=== PATIENT | male | born 2005 | race Caucasian/White ===

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

== ENCOUNTER 2024-09-23 10:30 | Emergency (ER) | payer MEDICAID, SELFPAY ==
[2024-09-23 10:32] VITALS: BP 126/96; PULSE 68; RESP 16; TEMP 36.4; O2SAT 99; BMI 16.0
--- NOTE | 2024-09-23 11:39 | EX.ED.VIS.PS ---
HPI <JHONATAN Lauren - Last Filed: 09/23/24 17:40> HPI - Psych History of Present Illness Chief Complaint: Mental Health Narrative Narrative: Patient presenting today due to concerns for auditory and visual hallucinations he has had over the last several days. He reports that he sees people who are not there and also hears voices, primarily whispers that talk about Shree and also tell him to bite himself. Mom reports that he has been biting his arms and shoulders. She reports that he has a history of Asperger's, bipolar disorder, and schizophrenia. He is not currently on any antipsychotics. He used to follow with the counseling center but no longer does, mom called to get him scheduled and they recommended he be brought here so that he can be admitted to psychiatric hospital. He denies SI, HI, and substance use. PFSH <JHONATAN Lauren - Last Filed: 09/23/24 17:40> [facility] Medical History Schizophrenia Bipolar 1 disorder Asperger syndrome Autism Home Medications ?Medication ?Instructions ?Recorded ?Last Taken ?Type lorazepam .ROUTE 09/23/24 Unknown History Allergy/AdvReac Type Severity Reaction Status Date / Time egg Allergy Hives Verified 09/23/24 10:32 chocolate flavor AdvReac Diarrhea Verified 09/23/24 10:32 Surgical History History of placement of ear tubes Social History Smoking Status: Never smoker ROS <JHONATAN Lauren - Last Filed: 09/23/24 17:40> ROS ED Constitutional Constitutional ED: Denies chills or fever(s) Cardiovascular Cardiovascular: Denies chest pain Respiratory/Chest Respiratory/Chest: Denies cough or dyspnea Gastrointestinal Gastrointestinal: Denies abdominal pain, nausea or vomiting Musculoskeletal Musculoskeletal: Denies arthralgias or myalgias Integumentary Denies rash Neurologic Neurologic: Denies weakness Psychiatric Psychiatric: Reports hallucinations; Denies homicidal ideation, suicidal ideation or suicidal thoughts EXAM <JHONATAN Lauren - Last Filed: 09/23/24 17:40> Physical Exam Const Vital Signs: 09/23/24 10:32 09/23/24 12:24 09/23/24 16:11 Temperature 97.6 F L 97.5 F L Temperature Source Oral Pulse Rate 68 82 91 Respiratory Rate 16 16 16 Blood Pressure 126/96 H 127/81 H 124/82 H Blood Pressure Mean 106 96 96 Pulse Ox 99 98 96 Oxygen Delivery Method Room Air Room Air Positive well nourished, well developed and no apparent distress General Appearance ED: well developed HEENT Reports normocephalic and head/scalp atraumatic Mouth ED: Yes moist mucous membranes normal Eyes PERRL and EOMs intact bilaterally Neck full ROM and supple Chest Wall inspection of chest normal Resp normal respiratory effort and clear to auscultation bilaterally Cardio regular rate and regular rhythm GI soft to palpation, non-tender, non-distended and no masses Back/Spine normal ROM and normal to inspection Extremity normal to inspection and full ROM Neuro oriented x3, CN's II-XII intact bilaterally, moves all extremities, no focal motor deficits and no sensory deficits noted Sensorium / Orientation: awake and alert Psych cooperative Attitude: calm Thought Content: hallucination(s) Positive for auditory and visual Skin no rashes or lesions noted and no wounds <Dr. Porfirio Salgado DO - Last Filed: 09/23/24 15:04> Physical Exam Const Vital Signs: 09/23/24 10:32 09/23/24 12:24 09/23/24 16:11 Temperature 97.6 F L 97.5 F L Temperature Source Oral Pulse Rate 68 82 91 Respiratory Rate 16 16 16 Blood Pressure 126/96 H 127/81 H 124/82 H Blood Pressure Mean 106 96 96 Pulse Ox 99 98 96 Oxygen Delivery Method Room Air Room Air MDM <JHONATAN Lauren - Last Filed: 09/23/24 17:40> [facility] Narrative Medical decision making narrative: Patient presenting today with his mom due to concerns for auditory and visual hallucinations. He is not currently on any psychotic medications. He is not suicidal or homicidal. He has had voices telling him to bite himself, no bite wounds noted on exam. Mom would like patient to go to a psychiatric facility so that a treatment plan can be developed. He otherwise is nontoxic-appearing. Medical clearance labs obtained and patient is medically cleared. Social work did speak with patient and his mom and they agree that he would benefit from placement in a facility. He is pending transfer at this time and remains stable. He was pink slipped. Lab Data Labs: Laboratory Results - last 24 hr 09/23/24 09/23/24 11:39 13:13 WBC 7.5 RBC 5.91 Hgb 16.2 Hct 48.7 MCV 82.4 MCH 27.4 MCHC 33.3 RDW Std Deviation 40.3 RDW Coeff of Armin 13.6 Plt Count 176 MPV 10.3 Immature Gran % (Auto) 0.400 Neut % (Auto) 74.7 H Lymph % (Auto) 12.1 L [place] % (Auto) 11.2 H Eos % (Auto) 1.1 Baso % (Auto) 0.5 Absolute Neuts (auto) 5.6 Absolute Lymphs (auto) 0.91 Nucleated RBC % 0 Sodium 135 L Potassium 3.9 Chloride 103 Carbon Dioxide 28.0 Anion Gap 5 BUN 9 Creatinine 0.78 Estim Creat Clear Calc 121.44 Est GFR (MDRD) Af Amer 162 Est GFR (MDRD) Non-Af 134 BUN/Creatinine Ratio 11.5 Glucose 92 Calcium 9.4 Urine Opiates Screen NEGATIVE Urine Methadone Screen NEGATIVE Ur Barbiturates Screen NEGATIVE Ur Phencyclidine Scrn NEGATIVE Ur Amphetamines Screen NEGATIVE MDMA (Ecstasy) Screen NEGATIVE U Benzodiazepines Scrn NEGATIVE Urine Cocaine Screen NEGATIVE U Cannabinoids Screen NEGATIVE Ur Drug Screen Comment Ethyl Alcohol < 3.0 <Dr. Porfirio Salgado, DO - Last Filed: 09/23/24 15:04> MDM History & Record Review Discussion w/independent historian: Patient and Family Lab Data Attestation: I reviewed the patient's lab results. Labs: Laboratory Results - last 24 hr 09/23/24 09/23/24 11:39 13:13 WBC 7.5 RBC 5.91 Hgb 16.2 Hct 48.7 MCV 82.4 MCH 27.4 MCHC 33.3 RDW Std Deviation 40.3 RDW Coeff of Armin 13.6 Plt Count 176 MPV 10.3 Immature Gran % (Auto) 0.400 Neut % (Auto) 74.7 H Lymph % (Auto) 12.1 L [place] % (Auto) 11.2 H Eos % (Auto) 1.1 Baso % (Auto) 0.5 Absolute Neuts (auto) 5.6 Absolute Lymphs (auto) 0.91 Nucleated RBC % 0 Sodium 135 L Potassium 3.9 Chloride 103 Carbon Dioxide 28.0 Anion Gap 5 BUN 9 Creatinine 0.78 Estim Creat Clear Calc 121.44 Est GFR (MDRD) Af Amer 162 Est GFR (MDRD) Non-Af 134 BUN/Creatinine Ratio 11.5 Glucose 92 Calcium 9.4 Urine Opiates Screen NEGATIVE Urine Methadone Screen NEGATIVE Ur Barbiturates Screen NEGATIVE Ur Phencyclidine Scrn NEGATIVE Ur Amphetamines Screen NEGATIVE MDMA (Ecstasy) Screen NEGATIVE U Benzodiazepines Scrn NEGATIVE Urine Cocaine Screen NEGATIVE U Cannabinoids Screen NEGATIVE Ur Drug Screen Comment Ethyl Alcohol < 3.0 Management Discussion w/another healthcare provider: face worker/Case management Treatment and Re-Evaluation Narrative: I have personally performed a face to face assessment of the patient and have reviewed the PERCY Note. I performed a substantive portion of the visit including all aspects of the following. My ratliff findings include: History is 19-year-old male history of schizophrenia bipolar asked Buerger's presenting with auditory and visual command hallucinations. He has begun biting himself. He is not currently on psychiatric medications. He is accompanied by mom. Exam is patient is cooperative with staff. Hallucinations are noted. Appears internally stimulated. Medical Decison Making patient was medically cleared. Case was discussed with social work, are going to work towards a psychiatric admission. Discharge Plan Triage Chief Complaint: Mental Health ED Midlevel Provider: Ela Huertas ED Provider: Porfirio Salgado Dx/Rx/DC Orders Clinical Impression: Auditory hallucinations, Hallucination, visual, Bipolar disorder, Schizophrenia, Asperger disorder Prescriptions: No Action lorazepam .ROUTE Patient Comments: PER MOTHER, PT TAKES 10 MG ATIVAN PRN FOR ANXIETY/ AGGITATION Primary Care Provider: Care Physician,No Primary Referrals: Care Physician,No Primary [Primary Care Provider] - Print Language: Hungarian
[2024-09-23 11:55] LABS: Absolute Lymphocyte Count 0.91 X10^3/uL (0.83-4.51); Absolute Neutrophil Count 5.6 X10^3/uL (2.0-7.7); Basophil# 0.04 X10^3/uL; Basophil% 0.5 % (0-1); Eosinophil# 0.08 X10^3/uL; Eosinophils% 1.1 % (0-5); Hematocrit 48.7 % (40-54); Hemoglobin 16.2 g/dL (13.0-16.5); Lymphocyte # 0.91 X10^3/ul (0.83-4.51); Lymphocyte % 12.1 % (19-41); Mean Corp Hgb Conc 33.3 g/dL (32-36); Mean Corpuscular Hgb 27.4 pg (27.0-32.0); Mean Corpuscular Volume 82.4 fL (80-94); Mean Platelet Vol. 10.3 fl (6.2-12.0); Monocyte# 0.84 X10^3/uL; Monocyte% 11.2 % (0-10); NRBC Flagged by Analyzer 0 % (0-5); Neutrophil # 5.63 X10^3/uL (2.7-7.7); Neutrophil % 74.7 % (47-70); Platelet Count 176 K/mm3 (150-450); RBC Distribution Width CV 13.6 % (11.6-14.6); RBC Distribution Width SD 40.3 fl (35.1-43.9); Red Blood Count 5.91 M/mm3 (4.6-6.2); White Blood Count 7.5 K/mm3 (4.4-11.0)
[2024-09-23 12:08] LABS: Anion Gap 5 (5-15); BUN 9 mg/dL (7-18); BUN/Creat Ratio 11.5 RATIO (10-20); Calcium,Total 9.4 mg/dL (8.5-10.1); Chloride 103 mmol/L (98-107); Creatinine, Serum 0.78 mg/dL (0.70-1.30); EST Glomerular Filtration Rate 134 mL/min (>60); Est Glom Filt Rate - Afr Amer 162 mL/min (>60); Estimated Creatinine Clearance 121.44 ml/min; Glucose 92 mg/dL (74-106); Potassium 3.9 mmol/L (3.5-5.1); Sodium Level 135 mmol/L (136-145)
[2024-09-23 12:10] LABS: Alcohol, Blood (Medical)-Serum < 3.0 mg/dL
[2024-09-23 12:24] VITALS: BP 127/81; PULSE 82; RESP 16; O2SAT 98
[2024-09-23 13:44] LABS: Amphetamine Urine VISTA NEGATIVE (<1000 ng/mL); Barbiturate Urine VISTA NEGATIVE (< 200 ng/mL); Benzodiazepine Urine VISTA NEGATIVE (< 200 ng/mL); Cocaine Urine VISTA NEGATIVE (< 300 ng/mL); Ecstacy Urine VISTA NEGATIVE (< 500 ng/mL); Methadone Urine VISTA NEGATIVE (< 300 ng/mL); PCP Urine VISTA NEGATIVE (< 25 ng/mL); THC Urine VISTA NEGATIVE (< 50 ng/mL); Vista UDS pH Range 7
--- NOTE | 2024-09-23 14:49 | CM.ED ---
Social Work Psychiatric Assessment Reason for consult: mental health/hallucinations. Informant(s): patient, patient?s mother Martha, and medical records. Chief Complaint: Patient presented to the [facility] ED via squad along with patient?s mother, Martha. Per triage, patient has ?experienced an increase in visual and auditory hallucinations over the past few months.? Triage notes also show patient?s mother stating ?patient has been biting himself? more often over the last two months. Patient reports his hallucinations as coming from ?nobody specific,? but patient identifies the hallucinations as ?swearing, mumbling, and whispering.? Patient reports the voices are telling patient to bite himself, which patient?s mother reports patient doing more often lately. Patient reports eating and sleeping as ?okay,? but patient?s mother reports a decline in patient?s sleep and patient?s mother reports an inability to keep patient out of the fridge. Patient?s mother reports patient has ?not been acting like himself,? specifically stating patient has been looking in the hallways during the evening for patient?s mother and patient?s sister. Patient was unaware of yesterday being [place] and patient had disorganized thinking throughout conversation. Patient bit himself a few times during this assessment and patient became agitated at times throughout conversation. Marital/Social History/Sexual Orientation/Gender Identity: patient is single and identifies as a straight male. Living Situation: patient initially reported living with his father and sister, Angle. Patient later reported living with his mother and sister Angle. Patient?s mother reports that patient?s stepfather, Thad (goes by Aiden), lives with patient as well. Support/Resources: patient reports having a dog, Freddy, at home. Patient?s mother reports having zero supports and resources. Patient?s mother reports that patient has support from patient?s mother and patient?s father only. Patient?s mother reported patient used to have [employer] services until patient graduated high school. History: None Education and Employment History: patient reportedly graduated high school and went to the [employer] for Building and Grounds. Patient does not currently work. In school, patient reportedly had an IEP for speech, handwriting, and extra time on tests. Mental Health Treatment/History: patient was first diagnosed with ADHD and high-functioning autism by patient?s PCP and those were confirmed by [facility]. Patient was also reportedly diagnosed with Schizophrenia and Bipolar I disorder during his placement at [facility] in October 2022. Patient?s mother reports [facility] to be patient?s only inpatient placement. Patient reportedly receiving counseling and psychiatric services through [facility] after patient?s [facility] stay, but patient is not currently receiving these services anywhere. Patient has reportedly taken Adderall and Ativan in the past, but patient?s mother denies current use of these medications. Patient?s father reportedly has been diagnosed with schizophrenia and bipolar; patient?s mother reports being through ?17 mental health assessments? with patient?s father. Patient?s last mental health assessment through [facility] ED was on 11/06/2022. Triggers/Stressors to mental health: patient denies any current triggers/stressors to his mental health. Patient?s mother also denied any current stressors. Coping Skills: patient stated ?yes? when asked about coping skills. Patient then stated, ?I don?t know? when asked what specific coping skills. Patient was given options by this foster care social worker and patient stated he still did not know. Patient became overwhelmed at one point during the assessment and patient was able to take a deep breath with this foster care social worker which helped. Patient?s mother stated patient has been ?obsessed? with taking showers lately and showers appear to help regulate patient?s emotions. Patient?s mother stated patient enjoys checking on patient?s mother and patient?s sister, as well as ?cuddling? with patient?s mother. History of Abuse (physical/sexual/verbal/emotional): patient and patient?s mother both deny. Substance Abuse Current/Historical: patient and patient?s mother both deny. Risk to Self/Others: ? Suicidal (thought/plan/intent/attempt): Patient and patient?s mother deny patient having current or historical suicidal thoughts, plans, intent, or attempts. ? Access to Lethal Means: patient?s mother reports patient has no access to guns or patient?s medication. Patient is reportedly not allowed in the kitchen where knives are without patient?s mother, patient?s stepfather, or patient?s sister present. ? Homicidal (thought/plan/intent/attempt): Patient and patient?s mother deny patient having current or historical homicidal thoughts, plans, intent, or attempts. ? History of Violence (self/others/objects): Patient denies history of violence toward self, others, and objects. Patient?s mother states patient has been biting himself more often over the last two months. Mental Status Exam: ??? Orientation: patient was not oriented to time, place, or person. Patient stated it was the ?? and patient believed patient was at ?home? rather than the hospital. Patient stated the president was ?Roberto.? Memory: impaired. Appearance/General Behavior: disheveled, arrived to [facility] ED in socks and no shoes, directable. Mood/Affect: elevated, blunted at times. Communication Pattern: does not initiate, pressured, agitated at times, inability to answer specifically. Thought Process: hallucinations A/V, preoccupied by internal stimuli. General Intellectual Functioning: below average. Judgment: poor Insight: poor [place] SS[place] SUICIDAL IDEATION Ask questions 1 and 2.? If both are negative, proceed to ?Suicidal Behavior? section. If the answer question 2 is yes, ask questions 3, 4, 5.? If the answer to question 1 and/or 2 is ?yes?, complete ?Intensity of Ideation? section below. 1. Wish to be ? Subject endorses thoughts about a wish to be or not alive anymore, or wish to fall asleep and not wake up. Have you wished you were or wished you could go to sleep and not wake up? Lifetime: Time He/She [place] Most Suicidal: ?no Past 1 month: no Please Describe if yes: ?N/A 2. Non-Specific Active Suicidal Thoughts General, non-specific thoughts of wanting to end one?s life/commit suicide (e.g., ?I?ve thought about killing myself?) without thoughts of ways to kills oneself/associated methods, intent, or plan during the assessment period.? Have you actually had any thoughts of killing yourself? Lifetime: Time He/She [place] Most Suicidal: ?no Past 1 month: no Please Describe if yes: N/A 3. Active Suicidal Ideation with Any Methods (Not Plan) without Intent to Act Subject endorses thoughts of suicide and has thought of at least one method during the assessment period.? This is different than a specific plan with time, place, or method details worked out (e.g., thought of method to kills self but not a specific plan).? Includes person who would say ?I thought about thanking an overdose, but I never made a specific plan as to when, where or how. I would actually do it, and I would never go through with it.? Have you been thinking about how you might do this? Lifetime: Time He/She [place] Most Suicidal: ? Past 1 month:? Please Describe if yes: 4. Active Suicidal Ideation with Some Intent to Act, without Specific Plan Active suicidal thoughts of kills oneself fand subject reports having some intent to act on such thoughts, as opposed to ?I have the thoughts but I definitely will not do anything about them.? Have you had these thoughts and had some intention of acting on them? Lifetime: Time He/She [place] Most Suicidal: Past 1 month: Please Describe if yes: 5. Active Suicidal Ideation with Specific Plan and Intent Thoughts of kills oneself with details of plan fully or partially worked out and subject has some intent to care it out. Have you started to work out or worked out the details of how to kill yourself? Do you intend to carry out this plan? Lifetime: Time He/She [place] Most Suicidal: Past 1 month: ??? Please Describe if yes: INTENSITY OF IDEATION The following feature should be rated with respect to the most sever type of ideation (i.e., 1-5 from above, with 1 being the least severe and 5 being the most severe). Ask about time he/she/they were feeling the most suicidal.? Lifetime - Most Severe Ideation: Type # (1-5): Description: Recent - Most Severe Ideation: Type # (1-5): Description: Frequency How many times have you had these thoughts? Lifetime: (1) Less than once a week??? (2) Once a week?? (3)? 2-5 times in week??? (4) Daily or almost daily??? (5) Many times each day Recent, Past 1 month:? (1) Less than once a week??? (2) Once a week?? (3)? 2-5 times in week??? (4) Daily or almost daily??? (5) Many times each day Duration When you have the thoughts how long do they last? Lifetime: (1) Fleeting - few seconds or minutes? (2) Less than 1 hour/some of the time? (3) 1-4 hours/a lot of time? 4) 4-8 hours/most of day? (5) More than 8 hours/persistent or continuous Recent, Past 1 month :? (1) Fleeting - few seconds or minutes? (2) Less than 1 hour/some of the time? (3) 1-4 hours/a lot of time? 4) 4-8 hours/most of day? (5) More than 8 hours/persistent or continuous Controllability Could/can you stop thinking about killing yourself or wanting to if you want to? Lifetime: ?(1) Easily able to control thoughts?? (2) Can control thoughts with little difficulty??? (3) Can control thoughts with some difficulty??? 4) Can control thoughts with a lot of difficulty? (5) Unable to control thoughts?? (0) Does not attempt to control thoughts Recent, Past 1 month: (1) Easily able to control thoughts?? (2) Can control thoughts with little difficulty??? (3) Can control thoughts with some difficulty??? 4) Can control thoughts with a lot of difficulty? (5) Unable to control thoughts?? (0) Does not attempt to control thoughts Deterrents Are there things - anyone or anything (e.g., family, latter-day, pain of ) - that stopped you from wanting to or acting on thoughts of committing suicide? Lifetime:? (1) Deterrents definitely stopped you from attempting suicide? (2) Deterrents probably stopped you?? (3) Uncertain that deterrents stopped you? (4) Deterrents most likely did not stop you? (5) Deterrents definitely did not stop you?? 0) Does not apply??? Recent:??? (1) Deterrents definitely stopped you from attempting suicide? (2) Deterrents probably stopped you?? (3) Uncertain that deterrents stopped you? (4) Deterrents most likely did not stop you? (5) Deterrents definitely did not stop you?? 0) Does not apply??? Reasons for Ideation What sort of reasons did you have for thinking about wanting to or killing yourself? Was it to end the pain or stop the way you were feeling (in other words you couldn?t go on living with this pain or how you were feeling) or was it to get attention, revenge or a reaction from others? Or both? Lifetime: (1) Completely to get attention, revenge or a reaction from? ?(2) Mostly to get attention, revenge or a reaction from others? (3) Equally to get attention, revenge or a reaction from others ?and to end/stop the pain?? ( 4) Mostly to end or stop the pain (you couldn?t go on living with the pain or how you were feeling)??? (5) Completely to end or stop the pain (you couldn?t go on living with the pain or? how you were feeling)??? (0)? Does not apply? Recent: (1) Completely to get attention, revenge or a reaction from?? (2) Mostly to get attention, revenge or a reaction from others? (3) Equally to get attention, revenge or a reaction from others? and to end/stop the pain??? (4) Mostly to end or stop the pain (you couldn?t go on living with the pain or how you were feeling)?? (5) Completely to end or stop the pain (you couldn?t go on living with the pain or? how you were feeling)?? (0)? Does not apply? SUICIDAL BEHAVIOR Actual Attempt: A potentially self-injurious act committed with at least some wish to , as a result of act.? Behavior was in part thought of as method to kill oneself.? Intent does not have to be 100%.? If there is any intent/desire to associated with the act, then it can be considered an actual suicide attempt.? There does not have to be any injury of harm, just the potential for injury or harm.? If person pulls trigger while gun is in mouth, but gun is broken so no injury results, this is considered an attempt.? Inferring intent:? Even if an individual denies intent/wish to , it may be inferred clinically from the behavior or circumstances.? For example, a highly lethal act that is clearly not an accident so no other intent but suicide can be inferred (e.g. gunshot to head, jumping from window of a high floor/story).? Also, if someone denies intent to , but they thought that what they did could be lethal, intent may be inferred.? Have you made a suicide attempt? Have you done anything to harm yourself? Have you done anything dangerous where you could have ? What did you do? Did you as a way to end your life? Did you want to (even a little) when you ? Were you trying to end your life when you ? Or did you think it was possible you could have from ? Or did you do it purely for other reasons/without ANY intention of killing yourself like to relieve stress, feel better, get sympathy, or get something else to happen)? (Self -Injurious Behavior without suicidal intent) Lifetime: no Past 3 months: no If yes, describe: N/A Total # of Attempts in His/Her Lifetime: 0 Total # of attempts in Past 3 months: 0 Has person engaged in Non-Suicidal Self-Injurious Behavior? Lifetime: no Past 3 months: no Interrupted Attempt:? When the person is interrupted (by an outside circumstance) from starting the potentially self-injurious act (if not for that, actual attempt would have occurred).? Overdose: Person has pills in hand but is stopped from ingesting. Once they ingest any pills, this becomes an attempt rather than an interrupted attempt. Shooting: Person has gun pointed toward self, gun is taken away by someone else, or is somehow prevented from pulling trigger. Once they pull the trigger, even if the gun fails to fire, it is an attempt. Jumping: Person is poised to jump, is grabbed and taken down from ledge.? Hanging: Person has noose around neck but has not yet started to hang self -is stopped from doing so.? Has there been a time when you started to do something to end your life but someone or something stopped you before you did anything? Lifetime: Past 3 months: If yes, describe: ? Total # of interrupted attempts in His/Her Lifetime: Total # of interrupted attempts in Past 3 months: Aborted or Self-Interrupted Attempt:? When person begins to take steps toward making a suicide attempt, but stops themselves before they have actually engaged in any self-destructive behavior. Examples are like interrupted attempts, except that the individual stops him/herself, instead of being stopped by something else. Has there been a time when you started to do something to try to end your life, but you stopped yourself before you did anything? Lifetime: Past 3 months: If yes, describe: Total # of aborted or self-interrupted attempts in His/Her Lifetime: Total # of aborted or self-interrupted attempts in Past 3 months: Preparatory Acts or Behavior:? Acts or preparation towards imminently making a suicide attempt. This can include anything beyond a verbalization or thought, such as assembling a specific method (e.g., buying pills, purchasing a gun) or preparing for one?s by suicide (e.g., giving things away, writing a suicide note). Have you taken any steps towards making a suicide attempt or preparing to kill yourself (such as collecting pills, getting a gun, giving valuables away or writing a suicide note)? Lifetime: Past 3 months: If yes, describe: ? Total # of preparatory acts in His/Her Lifetime: Total # of preparatory acts in Past 3 months: Lethality/Medical Damage:??? 0.? No physical damage or very minor physical damage (e.g., surface scratches). 1.? Minor physical damage (e.g., lethargic speech; first-degree gaona; mild bleeding; sprains). 2.? Moderate physical damage; medical attention needed (e.g., conscious but sleepy, somewhat responsive; second-degree gaona; bleeding of major vessel). 3.? Moderately severe physical damage; medical hospitalization and likely intensive care required (e.g., comatose with reflexes intact; third-degree gaona less than 20% of body; extensive blood loss but can recover; major fractures). 4.? Severe physical damage; medical hospitalization with intensive care required (e.g., comatose without reflexes; third-degree gaona over 20% of body; extensive blood loss with unstable vital signs; major damage to a vital area). 5.? Most Recent attempt Date: Code: Most Lethal Attempt Date: Code: Initial/First Attempt Date: Code: Potential Lethality: ?Only Answer if Actual Lethality=0 Likely lethality of actual attempt if no medical damage (the following examples, while having no actual medical damage, had potential for very serious lethality: put gun in mouth and pulled the trigger but gun fails to fire so no medical damage; laying on train tracks with oncoming train but pulled away before run over). 0 = Behavior not likely to result in injury 1 = Behavior likely to result in injury but not likely to cause 2 = Behavior likely to result in despite available medical care Most Recent Attempt Code: Most Lethal Attempt Code: Initial/First Attempt Code: Assessment Summary: due to patient decompensating over the last 2-3 months, inability to function properly at home, and increase in hearing voices/responding to internal stimuli, patient would benefit from inpatient psychiatric hospitalization for stabilization. Patient would benefit from resuming psychiatric medication to help manage his command hallucinations and disorganized thinking. Plan: inpatient mental health treatment. ? Macrina Prescott, STAGE ELECTRICIAN HELPER, WOVEN WOOD SHADE ASSEMBLER
--- NOTE | 2024-09-23 15:21 | CM.ED ---
Social work 1430: Called [facility] (ph: [phone]) due to patient being placed there in the past and [facility] had open beds. Faxed referral (f: [phone]) and patient was accepted about 1500. N2N: Dr. Wray accepting physician [facility]. [phone] Transport can occur at any point. Called patient's mother, Martha, to inform (ph: [phone]). Patient's mother expressed being grateful. Nursing and Dr. franks of the same. Plan: [facility] pending transport. Macrina Prescott, GLASS FITTER, AWARD CLERK
[2024-09-23 16:11] VITALS: BP 124/82; PULSE 91; RESP 16; TEMP 36.4; O2SAT 96
--- NOTE | 2024-09-23 16:58 | CM.ED ---
Social work Maria Del Carmen from [facility] ([phone]) called to receive ETA on patient's arrival to their facility. Nursing told this SW patient transport expected to be between 1645 and 1715. Maria Del Carmen updated. No other needs at this time. Macrina Prescott, WORKFORCE PLANNER, PORTFOLIO MGR
== END 2024-09-23 17:50 ==
PROVIDERS: Physician Assistant; Emergency Provider Emergency Medicine; Visit Provider Emergency Medicine
DX: F20.9 Schizophrenia, unspecified (principal); F31.9 Bipolar disorder, unspecified; F84.5 Asperger's syndrome
CPT/HCPCS: 36415; 80048; 80307; 82077; 85025; 99285